=== PATIENT | female | born 1965 | race Caucasian/White ===

== ENCOUNTER 2018-07-05 19:21 | Emergency (ER) | payer OTHER ==
[2018-07-05 19:35] VITALS: BP 127/90; PULSE 68; TEMP 98.4; BMI 26.6
--- NOTE | 2018-07-05 19:37 | PDOC ---
History of Present Illness <Savita,Katie - Last Filed: 07/05/18 20:07> - General History Source: Patient Exam Limitations: No Limitations - History of Present Illness Initial Comments: 07/05/18 20:11 The patient is a 53-year-old female with no reported past medical history presents to the emergency department with throat pain. The patient states shes been having a couple days of throat discomfort associated with a slight cough and increased warmth. The patient states she wanted to be evaluated, secondary to her daughters recent diagnosis for strep throat. Denies abdominal pain, nausea, vomiting. Allergies: NKDA Social history: Former smoker. No alcohol or drug use reported. PCP: Kris Lund. <Naty Long - Last Filed: 07/05/18 20:11> - General Chief Complaint: Sore Throat Stated Complaint: SORE THROAT Time Seen by Provider: 07/05/18 19:37 Past History - Past Medical History COPD: No - Immunization History Immunization Up to Date: Yes - Suicide/Smoking/Psychosocial Hx Smoking History: Never smoked Have you smoked in the past 12 months: No If you are a former smoker, when did you quit?: 1994 Hx Alcohol Use: No Drug/Substance Use Hx: No Substance Use Type: None Hx Substance Use Treatment: No <Katie Barney - Last Filed: 07/05/18 20:07> <Naty Long - Last Filed: 07/05/18 20:11> - Past Medical History Allergies/Adverse Reactions: Allergies Allergy/AdvReac Type Severity Reaction Status Date / Time No Known Allergies Allergy Verified 11/24/14 20:17 Home Medications: Ambulatory Orders NK [No Known Home Medication] 11/24/14 Review of Systems - Review of Systems Able to Perform ROS?: Yes Comments:: 07/05/18 19:56 GENERAL/CONSTITUTIONAL: +warm. No fever or chills. No weakness. HEAD, EYES, EARS, NOSE AND THROAT: +throat pain. No change in vision. No ear pain or discharge. CARDIOVASCULAR: No chest pain or shortness of breath. RESPIRATORY: +slight cough. No wheezing, or hemoptysis. GASTROINTESTINAL: No nausea, vomiting, diarrhea or constipation. MUSCULOSKELETAL: No joint or muscle swelling or pain. No neck or back pain. SKIN: No rash NEUROLOGIC: No headache, vertigo, loss of consciousness, or change in strength/ sensation. ENDOCRINE: No increased thirst. No abnormal weight change. HEMATOLOGIC/LYMPHATIC: No anemia, easy bleeding, or history of blood clots. ALLERGIC/IMMUNOLOGIC: No hives or skin allergy. <Naty Long - Last Filed: 07/05/18 20:11> *Physical Exam - Vital Signs Last Vital Signs Temp Pulse Resp BP Pulse Ox 98.4 F 68 16 127/90 100 07/05/18 19:21 07/05/18 19:21 07/05/18 19:21 07/05/18 19:21 07/05/18 19:21 <Katie Barney - Last Filed: 07/05/18 20:07> - Vital Signs Last Vital Signs Temp Pulse Resp BP Pulse Ox 98.4 F 68 16 127/90 100 07/05/18 19:21 07/05/18 19:21 07/05/18 19:21 07/05/18 19:21 07/05/18 19:21 - Physical Exam Comments: 07/05/18 19:51 GENERAL: Awake, alert, and fully oriented, in no acute distress EARS: TM clear bilaterally. THROAT: +Minimal erythema, no exudate. LUNGS: Breath sounds equal, clear to auscultation bilaterally. No wheezes, and no crackles HEART: Regular rate and rhythm, normal S1 and S2, no murmurs, rubs or gallops ABDOMEN: Soft, nontender, nondistended. <Naty Long - Last Filed: 07/05/18 20:11> Moderate Sedation - Procedure Monitoring Vital Signs: Procedure Monitoring Vital Signs Temperature 98.4 F 07/05/18 19:21 Pulse Rate 68 07/05/18 19:21 Respiratory Rate 16 07/05/18 19:21 Blood Pressure 127/90 07/05/18 19:21 O2 Sat by Pulse Oximetry (%) 100 07/05/18 19:21 <Katie Barney - Last Filed: 07/05/18 20:07> - Procedure Monitoring Vital Signs: Procedure Monitoring Vital Signs Temperature 98.4 F 07/05/18 19:21 Pulse Rate 68 07/05/18 19:21 Respiratory Rate 16 07/05/18 19:21 Blood Pressure 127/90 07/05/18 19:21 O2 Sat by Pulse Oximetry (%) 100 07/05/18 19:21 <Naty Long - Last Filed: 07/05/18 20:11> *DC/Admit/Observation/Transfer - Discharge Dispostion Decision to Admit order: No <Katie Barney - Last Filed: 07/05/18 20:07> - Attestations Scribe Attestion: 07/05/18 19:53 Documentation prepared by Naty Long, acting as medical records receptionist for Katie Barney MD. <Naty Long - Last Filed: 07/05/18 20:11> Diagnosis at time of Disposition: Pharyngitis Qualifiers: Pharyngitis/tonsillitis etiology: unspecified etiology Qualified Code(s): J02.9 - Acute pharyngitis, unspecified - Discharge Dispostion Disposition: HOME Condition at time of disposition: Stable - Referrals Referrals: Kris Alberto [Primary Care Provider] - - Patient Instructions Printed Discharge Instructions: DI for Viral Pharyngitis Additional Instructions: You came to the Ed for sore throat. Your strep test was negative, so your sore throat is most likely caused by a virus. return to the Ed for severe sore throat, unable to swallow liquids, difficulty breathing, fever >104, severe nausea and vomiting, other new or worsening symptoms. Make sure that you get plenty of fluids and rest. You can take motrin or tylenol for fever and pain. - Post Discharge Activity
== END 2018-07-05 20:15 | disposition home or self-care (01) ==
LOC: FER 19:21
DX: J02.9 Acute pharyngitis, unspecified (principal)
CPT/HCPCS: 87070; 87880; 99281-25